=== PATIENT | male | born 2000 | race Hispanic/Latino ===

== ENCOUNTER 2021-12-28 19:11 | Emergency (ER) | payer MEDICAID, SELFPAY ==
[2021-12-28 19:20] VITALS: BP 141/88; PULSE 75; RESP 16; TEMP 36.2; O2SAT 99
--- NOTE | 2021-12-28 19:31 | ED.EAR ---
HPI - Ear Problem General Chief complaint: Ear Stated complaint: left ear pain Time Seen by Provider: 12/28/21 19:31 Source: patient Mode of arrival: ambulatory Limitations: no limitations History of Present Illness HPI Narrative: 21-year-old male presented for complaint of left ear pain for about 2 weeks, worse over the last 3 days. Denies decreased hearing, sinus congestion, sore throat, fevers or chills. He denies dizziness. Endorses chronic intermittent tinnitus. MD Complaint: ear pain Related Data Allergies Allergy/AdvReac Type Severity Reaction Status Date / Time amoxicillin Allergy Mild Unknown Verified 12/28/21 19:13 codeine Allergy Mild Unknown Verified 12/28/21 19:13 latex Allergy Mild Unknown Verified 12/28/21 19:13 pseudoephedrine Allergy Mild Unknown Verified 12/28/21 19:13 Penicillins Allergy Unknown Unknown Unverified 12/28/21 19:13 Review of Systems Review of Systems: CONSTITUTIONAL: Denies malaise, chills, or fever. EYES: Denies visual changes, redness, or discharge. ENT: Denies rhinorrhea, congestion, sinus pain, and sore throat. Reports ear pain CARDIOVASCULAR: Denies chest pain, palpitations, or edema. RESPIRATORY: Denies cough or dyspnea. GASTROINTESTINAL: Denies abdominal pain, nausea, vomiting, diarrhea SKIN: Denies rash or itching. MUSCULOSKELETAL: Denies myalgia. NEUROLOGIC: Denies headache. All systems reviewed & are unremarkable except as noted in HPI and below PMFSH Comments At time of signature, agree with nursing past medical, surgical, social and family history. There is no relevant family history pertinent to the presenting complaint Exam Narrative: GENERAL: Well-appearing EYES: conjunctivae clear ENT: Nares clear. Mucous membranes moist. Right TM pearly klein with dull light reflex; Left TM erythematous with fluid levels; no tragal tenderness. Oropharynx not erythematous without lesions. CHEST: Clear to auscultation, breath sounds equal. HEART: Regular rate and rhythm. No murmur heard. SKIN: Warm, dry, no rash. NEURO: Alert and oriented x3. PSYCH: Normal mood and affect Course Course Emergency Course: Patient is aware of diagnosis, understands and agrees to treatment plan. Anticipatory guidance given. Patient agrees to follow-up as directed and is aware of reasons to seek care at the emergency department. Portions of this record may have been created with voice recognition software Level of Care: Express Care Visit Vital Signs Vital signs: Vital Signs Temperature 97.2 F L 12/28/21 19:20 Pulse Rate 75 12/28/21 19:20 Respiratory Rate 16 12/28/21 19:20 Blood Pressure 141/88 H 12/28/21 19:20 Pulse Oximetry 99 12/28/21 19:20 Oxygen Delivery Room Air 12/28/21 19:20 Temperature 97.2 F L 12/28/21 19:20 Pulse Rate 75 12/28/21 19:20 Respiratory Rate 16 12/28/21 19:20 Blood Pressure 141/88 H 12/28/21 19:20 Pulse Oximetry 99 12/28/21 19:20 Oxygen Delivery Room Air 12/28/21 19:20 Reviewed Medical Decision Making MDM Narrative Medical decision making narrative: Advised supportive measures for AOM, and signs/symptoms to go to the ER. Pt is appropriate for outpt treatment and f/u. Differential Diagnosis Differential Diagnosis: Coronavirus, strep pharyngitis, allergic rhinitis, upper respiratory tract infection, sinusitis, rhinosinusitis, nasopharyngitis, viral pharyngitis, otitis media, otitis externa, eustachian tube dysfunction, foreign body, cerumen impaction. Vital Signs Vital Signs: Vital Signs Temperature 97.2 F L 12/28/21 19:20 Pulse Rate 75 12/28/21 19:20 Respiratory Rate 16 12/28/21 19:20 Blood Pressure 141/88 H 12/28/21 19:20 Pulse Oximetry 99 12/28/21 19:20 Oxygen Delivery Room Air 12/28/21 19:20 Temperature 97.2 F L 12/28/21 19:20 Pulse Rate 75 12/28/21 19:20 Respiratory Rate 16 12/28/21 19:20 Blood Pressure 141/88 H 12/28/21 19:20 Pulse Oximetry 99 12/28/21 19:20 Oxygen Delivery Room Air
== END 2021-12-28 19:43 | disposition home or self-care (01) ==
PROVIDERS: Emergency Provider Nurse Practitioner Family
DX: H65.02 Acute serous otitis media, left ear (principal)
CPT/HCPCS: 99213; G0463

== ENCOUNTER 2024-05-25 13:48 | Emergency (ER) | payer SELFPAY ==
[2024-05-25 13:56] VITALS: BP 134/61; PULSE 80; RESP 20; TEMP 36.4; O2SAT 100
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
== END 2024-05-25 15:13 | disposition home or self-care (01) ==
PROVIDERS: Emergency Provider Nurse Practitioner
DX: S33.5XXA Sprain of ligaments of lumbar spine, initial encounter (principal); V89.2XXA Person injured in unspecified motor-vehicle accident, traffic, initial encounter
CPT/HCPCS: 99213; G0463

== ENCOUNTER 2024-07-01 16:45 | Emergency (ER) | payer SELFPAY ==
[2024-07-01 16:51] VITALS: BP 124/57; PULSE 93; RESP 19; TEMP 36.4; O2SAT 98
[2024-07-01 17:24] LABS: EDCOVIDSCREEN Negative (Negative); EDINFLUASCREEN Negative (Negative); EDINFLUBSCREEN Negative (Negative); EDSTREPNEGPOS1 Negative (Negative)
--- NOTE | 2024-07-01 17:33 | ED_ITS ---
HPI - URI/Sore Throat General Chief Complaint: Upper Respiratory Infection Stated Complaint: Cough/Bodyaches Time Seen by Provider: 07/01/24 17:25 Source: patient and RN notes reviewed Mode of arrival: ambulatory Limitations: no limitations History of Present Illness HPI Narrative: Patient presents today complaining of a 2 day history of body aches, headache, cough, congestion with sore throat since last night. Currently rates his pain 7/10 and has tried no [id number] treatment prior to arrival. Denies any fever, shortness of breath, difficulty swallowing, or known sick contacts. Related Data Allergies Allergy/AdvReac Type Severity Reaction Status Date / Time amoxicillin Allergy Mild Unknown Verified 07/01/24 16:54 codeine Allergy Mild Unknown Verified 07/01/24 16:54 latex Allergy Mild Unknown Verified 07/01/24 16:54 pseudoephedrine Allergy Mild Unknown Verified 07/01/24 16:54 Penicillins Allergy Unknown Unknown Verified 07/01/24 16:54 Review of Systems Review of Systems: CONSTITUTIONAL: Denies fever, chills, or sweats.+ body aches EYES: Denies visual changes, redness, or discharge. ENT: Denies rhinorrhea, or otalgia.+ congestion, sore throat CARDIOVASCULAR: Denies chest pain, palpitations, or edema. RESPIRATORY: Denies dyspnea.+ cough GASTROINTESTINAL: Denies abdominal pain, nausea, vomiting, or diarrhea. GENITOURINARY: Denies dysuria or hematuria. SKIN: Denies rash, itching, or wounds. MUSCULOSKELETAL: Denies back pain, joint pain, or myalgia. NEUROLOGIC: Denies numbness, tingling, or weakness.+ headache PSYCH: Denies depression or anxiety. PMFSH Comments At time of signature, I have reviewed and agree with nursing past medical, surgical, social and family history unless otherwise noted. Please see nursing chart for further information. There is no relevant family history pertinent to the presenting complaint Exam Narrative: GENERAL: Well-appearing, well-nourished, and in no acute distress. HEAD: Normocephalic, atraumatic. EYES: EOMI. No redness or drainage. Conjunctivae normal. ENT: Mucous membranes pink and moist. Nares clear. No rhinorrhea. TMs normal bilaterally. Throat normal. Uvula midline. NECK: Normal AROM. Supple. No lymphadenopathy. CHEST: No respiratory distress. Clear to auscultation. HEART: Regular rate and rhythm. No murmur appreciated. EXTREMITIES: Normal range of motion. No edema. SKIN: Warm, dry, no rash. Capillary refill normal. Normal skin turgor. NEURO: No focal deficits. Alert and oriented x3. Gait steady. PSYCH: Normal affect. No signs of depression or anxiety. Course Course Level of Care: Express [facility] Visit Vital Signs Vital signs: Vital Signs Temperature 97.6 F 07/01/24 16:51 Pulse Rate 93 07/01/24 16:51 Respiratory Rate 19 07/01/24 16:51 Blood Pressure 124/57 L 07/01/24 16:51 Pulse Oximetry 98 07/01/24 16:51 Oxygen Delivery Room Air 07/01/24 16:51 Temperature 97.6 F 07/01/24 16:51 Pulse Rate 93 07/01/24 16:51 Respiratory Rate 19 07/01/24 16:51 Blood Pressure 124/57 L 07/01/24 16:51 Pulse Oximetry 98 07/01/24 16:51 Oxygen Delivery Room Air 07/01/24 16:51 Reviewed MDM - URI/Sore Throat MDM Narrative Medical decision making narrative: Testing negative. Strep culture pending. Symptoms likely viral in etiology. Discussed [id number] medication use and duration of illness. No prescription medications indicated at this time. Anticipatory guidance given. Differential Diagnosis Differential diagnosis: Likely upper respiratory infection, otitis media, viral infection, influenza, pharyngitis and other (Strep throat, COVID) Lab Data Attestation: I reviewed the patient's lab results. Labs: Lab Results 07/01/24 Range/Units 17:22 POC Influenza A Ag Negative (Negative) POC Influenza B Ag Negative (Negative) POC SARS CoV-2 Ag Negative (Negative) POC Grp A Strep Screen Negative (Negative) Critical Care Time Critical Care Time Critical Care Time: No Discharge Plan Discharge Clinical Impression: Upper respiratory infection Qualifiers: URI type: unspecified URI Qualified Code(s): J06.9 - Acute upper respiratory infection, unspecified Patient Disposition: Home, Self-Care Condition: Stable Instructions: Upper Respiratory Infection (DC) Additional Instructions: Your COVID-19, influenza, and rapid strep swab was negative today at [facility] . You will be notified in a few days if the culture comes back positive for strep, and appropriate antibiotics will be called in for you at that time. Your symptoms are likely due to a viral illness, which is not treated with antibiotics. Viral symptoms can be present for up to 7-10 days. Take Tylenol or ibuprofen for fever or pain. Rest and stay hydrated. Follow up with your PCP in 7 days if symptoms are not improving. Go to the ER immediately if you have any difficulty breathing or swallowing. Your blood pressure was elevated above 120/80 today at Urgent Care. This puts you above the threshold for follow up. Please schedule a followup visit with your personal physician as soon as possible, for further evaluation and treatment. Even blood pressure exceeding 120/80 may indicate pre-hypertension. Patient Language: Divehi Prescriptions: No Action baclofen 10 mg tablet See Rx Instructions .ROUTE .COMPLEX PRN (Reason: muscle pain) Qty: 7 0RF Rx Instructions: 1 tab bid prn pain ibuprofen 600 mg tablet 600 mg PO TID PRN (Reason: fever or pain) Qty: 30 0RF Follow-up/Referrals: PHYSICIAN,RAND MAKER [Primary Care Provider] - Stand Alone Forms: Work/School Release IP Time of Disposition: 17:39
== END 2024-07-01 17:45 | disposition home or self-care (01) ==
PROVIDERS: Emergency Provider Nurse Practitioner
DX: J06.9 Acute upper respiratory infection, unspecified (principal); Z20.822 Contact with and (suspected) exposure to COVID-19; J45.909 Unspecified asthma, uncomplicated
CPT/HCPCS: 87081; 87426; 87804; 87880; 99213; G0463

== ENCOUNTER 2025-02-02 08:12 | Emergency (ER) | payer SELFPAY ==
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
[2025-02-02 08:18] VITALS: BP 157/92; PULSE 99; RESP 15; TEMP 36.4; O2SAT 99
[2025-02-02 08:23] VITALS: O2SAT 100
[2025-02-02 08:25] VITALS: BP 147/86; PULSE 94; RESP 20; O2SAT 100
--- NOTE | 2025-02-02 08:38 | ECG_ITS ---
Test Date: 2025-02-02 08:54:59 Measurements Intervals Slater Rate: 84 P: 33 ND: 162 QRS: 15 QRSD: 122 T: 31 QT: 373 QTc: 442 Interpretive Statements SINUS RHYTHM INTRAVENTRICULAR CONDUCTION DELAY MINIMAL Q WAVES- HIGH LATERAL LEADS BASELINE ARTIFACT- I, II, III, AVR, AVL, AVF, V1 BORDERLINE ECG No previous ECG available for comparison Electronically Signed On 02-02-2025 09:11:46 CDT by Gucci Modi D.O.
[2025-02-02] MEDS: KETOROLAC 30 MG/ML VIAL (*BKC) IM (08:49)
[2025-02-02 09:03] VITALS: BP 137/76; PULSE 74; RESP 16; O2SAT 100
[2025-02-02 09:26] LABS: Influenza A QL RT-PCR Negative (Negative); Influenza B QL RT-PCR Negative (Negative); RSV RNA, RT-PCR Negative (Negative); SARS-CoV-2 RNA PCR Negative (Negative)
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
[2025-02-02 10:09] VITALS: BP 106/75; PULSE 83; RESP 20; TEMP 36.7; O2SAT 100
== END 2025-02-02 10:11 | disposition home or self-care (01) ==
PROVIDERS: Emergency Provider Emergency Medicine
DX: J18.9 Pneumonia, unspecified organism (principal); S39.92XA Unspecified injury of lower back, initial encounter; Z20.822 Contact with and (suspected) exposure to COVID-19; I45.9 Conduction disorder, unspecified; V49.9XXA Car occupant (driver) (passenger) injured in unspecified traffic accident, initial encounter
CPT/HCPCS: 71045; 87637; 93005; 96372; 99283; J1885